=== PATIENT | male | born 1950 | race Caucasian/White ===

== ENCOUNTER 2018-03-20 18:07 | Inpatient (IN) | payer BC, MEDICARE ==
[~2018-03-20] VITALS: Ht 175.3 cm; Wt 82.3 kg
[~2018-03-20 18:07] MED LIST: ASPI81TA11 PO; CALA120T PO; CARV6.25 PO; CLOP75 PO; IMDU30TA PO; LISI-360 PO; NEXI40CA PO; SYNT112T PO; ZOCO20TA PO
[2018-03-20] MEDS ORDERED: IOHEXOL 350 MG/ML 10 ML VIAL (for RAD DIAG) IVCONTRAST ONE (18:08)
[2018-03-20 18:09] VITALS: BP 196/88; PULSE 76; RESP 18; TEMP 98.2; O2SAT 99
[2018-03-20] MEDS ORDERED: SIMV20TA PO (18:26)
[2018-03-20] MEDS ORDERED: CARV12.52 PO (18:26)
[2018-03-20] MEDS ORDERED: DILT120C50 PO (18:26)
[2018-03-20] MEDS ORDERED: ASPI81CH6 CHEW (18:26)
[2018-03-20] MEDS ORDERED: SYNT112T PO (18:26)
[2018-03-20] MEDS ORDERED: NEXI40CA PO (18:26)
[2018-03-20] MEDS ORDERED: LISI-515 PO (18:26)
[2018-03-20] MEDS ORDERED: JANT4TAB PO (18:26)
[2018-03-20] MEDS ORDERED: SODIUM CHLOR 0.9% 1000 ML INJ 1,000 ML IV SCH (18:29)
[2018-03-20] MEDS ORDERED: MORPHINE SULFATE 4 MG/ML INJ IV PUSH ONE (18:30)
[2018-03-20] MEDS ORDERED: ONDANSETRON HCL 4 MG/2 ML VIAL IVP ONE (18:30)
[2018-03-20] MEDS ORDERED: SODIUM CHLORIDE 0.9% FLUSH 10 ML FLUSH IV FLUSH PRN ×2 (18:30→22:00)
--- NOTE | 2018-03-20 18:41 | PD ---
HPI Chief Complaint: Abdominal Pain Time Seen by Provider: 18:15 Travel History International Travel<30 days: No Contact w/Intl Traveler<30days: No Traveled to known affect area: No History of Present Illness HPI 68-year-old male with PMH of HTN, diverticulitis, CAD S/P CABG, hypothyroid, vocal cord CA presents the ED for evaluation of intermittent left upper quadrant abdominal pain 6 days. Patient describes this pain as stabbing, radiating to the back. No alleviating factors reported. Exacerbated by touch in the left upper quadrant. He endorses accompanying loose stools with intermittent pencil thin stools. Denies melena, hematochezia, BRBPR. He endorses mild nausea and anorexia. He endorses palpitations when the pain is maximal. He denies CP, shortness of breath, diaphoresis, vomiting. No treatment attempted at home. Followed by Dr. Bull [facility] Past Medical History Blood Disorders: No Cancer: No Cardiac Catheterization: Yes Cardiovascular Problems: Yes (4 stents placed, aortic stenosis) Diabetes: No Endocrine: Yes Gastrointestinal Disorders: Yes Genitourinary: No Hepatitis: No Hiatal Hernia: No Hypertension: Yes Immune Disorder: No Musculoskeletal: No Neurologic: No Psychiatric: No Reproductive: No Respiratory: No Thyroid Disease: Yes Past Surgical History Abdominal Surgery: No Cardiac Surgery: Yes (STENTS) Coronary Artery Bypass Graft: Yes Endocrine Surgery: Yes (RADIATION FOR THYROID) Eye Surgery: Yes Joint Replacement: No Pacemaker: No Thoracic Surgery: No Other Surgery: Yes Social History Alcohol Use: Yes (wine with dinner) Tobacco Use: No Substance Use: No Allergies-Medications (Allergen,Severity, Reaction): Coded Allergies: azithromycin (Unverified Allergy, Severe, Itching, 07/09/17) penicillin G (Unverified Allergy, Severe, RASH/ITCHING, 07/09/17) Uncoded Allergies: Z-CLOTILDE (Allergy, Severe, HEART PALPITATIONS; GENERAL MALAISE, 08/17/14) PCN= TACHYCARDIA,SWEATING (Allergy, Unknown, 08/03/03) Reported Meds & Prescriptions Reported Meds & Active Scripts Active Reported Simvastatin 20 Mg Tab 20 Mg PO DAILY Diltiazem CD 24 HR 120 Mg Caper 120 Mg PO DAILY Lisinopril 20 Mg Tab 20 Mg PO BID Jantoven (Warfarin) 4 Mg Tab 4 Mg PO DAILY Carvedilol 12.5 Mg Tab 12.5 Mg PO BID Aspirin Low Dose (Aspirin) 81 Mg Chew 81 Mg CHEW DAILY Nexium (Esomeprazole DR) 40 Mg Capdr 40 Mg PO DAILY Synthroid (Levothyroxine Sodium) 112 Mcg Tab 112 Mcg PO DAILY Review of Systems Except as stated in HPI: all other systems reviewed are Neg Physical Exam Narrative GENERAL: Well-nourished, well-developed white male in no acute distress. SKIN: Focused skin assessment warm/dry. Well-healed sternotomy scar without signs of infection. HEAD: Normocephalic. EYES: No scleral icterus. No injection or drainage. NECK: Supple, trachea midline. No JVD or lymphadenopathy. CARDIOVASCULAR: Regular rate and rhythm without murmurs, gallops, or rubs. RESPIRATORY: Breath sounds clear and equal bilaterally. No accessory muscle use. GASTROINTESTINAL: Abdomen soft, nondistended. Tender to deep palpation in the left upper quadrant. Active bowel sounds. No palpable masses. No hepatosplenomegaly. MUSCULOSKELETAL: No cyanosis, or edema. BACK: Nontender without obvious deformity. No CVA tenderness. Data Data Last Documented VS Vital Signs Date Time Temp Pulse Resp B/P (MAP) Pulse Ox O2 Delivery O2 Flow Rate FiO2 03/20/18 19:16 16 03/20/18 19:15 104 143/81 (101) 98 Room Air 03/20/18 18:09 98.2 Orders Orders Complete Blood Count With Diff (03/20/18 18:29) Comprehensive Metabolic Panel (03/20/18 18:29) Lipase (03/20/18 18:29) Lactic Acid (03/20/18 18:29) Prothrombin Time / Inr (Pt) (03/20/18 18:29) Act Partial Throm Time (Ptt) (03/20/18 18:29) Urinalysis - C+S If Indicated (03/20/18 18:29) Ct Abd/Pel W Iv Contrast(Rout) (03/20/18 18:29) Iv Access Insert/Monitor (03/20/18 18:29) Ecg Monitoring (03/20/18 18:29) Oximetry (03/20/18 18:29) Morphine Inj (Morphine Inj) (03/20/18 18:30) Ondansetron Inj (Zofran Inj) (03/20/18 18:30) Sodium Chlor 0.9% 1000 Ml Inj (Ns 1000 M (03/20/18 18:29) Sodium Chloride 0.9% Flush (Ns Flush) (03/20/18 18:30) Electrocardiogram (03/20/18 18:29) Troponin I (03/20/18 18:29) Creatine Kinase (Cpk) (03/20/18 18:29) Aspirin Chew (Aspirin Chew) (03/20/18 19:45) Nitroglycerin 2% Oint (Nitroglycerin 2% (03/20/18 19:45) Iohexol 350 Inj (Omnipaque 350 Inj) (03/20/18 18:08) Carvedilol (Coreg) (03/20/18 20:45) Enoxaparin Inj (Lovenox Inj) (03/20/18 20:45) Admit Order (Ed Use Only) (03/20/18 20:57) Labs Laboratory Tests Test 03/20/18 18:38 White Blood Count 5.1 TH/MM3 Red Blood Count 4.03 MIL/MM3 Hemoglobin 12.4 GM/DL Hematocrit 36.7 % Mean Corpuscular Volume 91.0 FL Mean Corpuscular Hemoglobin 30.9 PG Mean Corpuscular Hemoglobin Concent 33.9 % Red Cell Distribution Width 15.8 % Platelet Count 167 TH/MM3 Mean Platelet Volume 8.4 FL Neutrophils (%) (Auto) 64.5 % Lymphocytes (%) (Auto) 22.9 % Monocytes (%) (Auto) 10.0 % Eosinophils (%) (Auto) 2.0 % Basophils (%) (Auto) 0.6 % Neutrophils # (Auto) 3.3 TH/MM3 Lymphocytes # (Auto) 1.2 TH/MM3 Monocytes # (Auto) 0.5 TH/MM3 Eosinophils # (Auto) 0.1 TH/MM3 Basophils # (Auto) 0.0 TH/MM3 CBC Comment DIFF FINAL Differential Comment Prothrombin Time 15.6 SEC Prothromb Time International Ratio 1.5 RATIO Activated Partial Thromboplast Time 30.5 SEC Urine Color LIGHT-YELLOW Urine Turbidity CLEAR Urine pH 5.5 Urine Specific [place] 1.002 Urine Protein NEG mg/dL Urine Glucose (UA) NEG mg/dL Urine Ketones NEG mg/dL Urine Occult Blood TRACE Urine Nitrite NEG Urine Bilirubin NEG Urine Urobilinogen LESS THAN 2.0 MG/DL Urine Leukocyte Esterase NEG Urine RBC 1 /hpf Urine WBC 2 /hpf Urine Squamous Epithelial Cells <1 /hpf Microscopic Urinalysis Comment CULT NOT INDICATED Blood Urea Nitrogen 14 MG/DL Creatinine 0.89 MG/DL Random Glucose 103 MG/DL Total Protein 7.2 GM/DL Albumin 3.7 GM/DL Calcium Level 8.9 MG/DL Alkaline Phosphatase 50 U/L Aspartate Amino Transf (AST/SGOT) 27 U/L Alanine Aminotransferase (ALT/SGPT) 33 U/L Total Bilirubin 0.4 MG/DL Sodium Level 137 MEQ/L Potassium Level 3.9 MEQ/L Chloride Level 102 MEQ/L Carbon Dioxide Level 26.4 MEQ/L Anion Gap 9 MEQ/L Estimat Glomerular Filtration Rate 85 ML/MIN Lactic Acid Level 0.9 mmol/L Total Creatine Kinase 198 U/L Troponin I 0.07 NG/ML Lipase 150 U/L MDM Medical Decision Making Medical Screen Exam Complete: Yes Emergency Medical Condition: Yes Differential Diagnosis Pancreatitis versus ACS versus GERD versus diverticulitis versus other Narrative Course 68-year-old male with PMH of HTN, diverticulitis, CAD S/P CABG, hypothyroid, vocal cord CA presents the ED for evaluation of intermittent left upper quadrant abdominal pain 6 days. Stabbing, radiating to the back. He endorses accompanying loose stools with intermittent pencil thin stools, mild nausea and anorexia. He endorses palpitations when the pain is maximal. He denies CP, shortness of breath, diaphoresis, vomiting. Followed by Dr. Bull. Patient's afebrile, pulse 76, BP 196/88 on presentation. On exam he has point tenderness to palpation in the left upper quadrant but exam is otherwise reassuring. Patient was ministered 1 L normal saline, 4 mg morphine, 4 mg Zofran. EKG rate 60, sinus rhythm. DE interval 195, QRS 89, QTC 4 7 ms. Normal axis. No acute ST changes. Reviewed by Dr. Hatfield. Troponin 0 0.07. CBC: WBC 5.1. Hemoglobin 12.4. INR: 1.5. CMP: BUN 14, creatinine 0.89. Abdomen pelvis CT: No acute abnormality demonstrated. Mild diverticulosis in the left side of the colon but no perceptive wall diverticulitis or other inflammatory changes. Small benign appearing cyst the liver and atherosclerosis of the abdominal aorta per radiology read. Patient was administered p.o. aspirin, 1 inch nitroglycerin paste was placed on the chest. He was administered his evening dose of carvedilol. I spoke with Dr. Cagle, on-call for Dr. Bull. She recommends holding Coumadin, initiating IM Lovenox, admission to the medicine service. BP 168/78 on recheck. Discussed this plan of care with the patient who is agreeable. I discussed the case with Dr. Jones who agrees to accept the patient to the medicine service. Please see medicine notes for disposition. Marah Hunter Mar 20, 2018 18:41
[2018-03-20 18:52] LABS: BILIRUBIN, URINE NEG (NEG); BLOOD, URINE TRACE (NEG); GLUCOSE,URINE NEG (NEG); KETONE, URINE NEG (NEG); NITRITE,URINE NEG (NEG); PH, URINE 5.5 (5.0-8.5); SQUAMOUS EPITHELIAL CELL URINE <1 /hpf (0-5); URINE COLOR LIGHT-YELLOW (YELLW/STRAW); URINE LEUKOCYTE ESTERASE NEG (NEG)
[2018-03-20 18:56] LABS: AUTOMATED NEUTROPHIL # 3.3 TH/MM3 (1.8-7.7); BASOPHIL % 0.6 % (0.0-2.0); EOSINOPHIL # 0.1 TH/MM3 (0-0.4); HEMATOCRIT 36.7 % (39.0-51.0); HEMOGLOBIN 12.4 GM/DL (13.0-17.0); LYMPH % 22.9 % (9.0-44.0); LYMPHOCYTE # 1.2 TH/MM3 (1.0-4.8); MEAN CORPUSCULAR HEMOGLOBIN 30.9 PG (27.0-34.0); MEAN CORPUSCULAR HGB CONC 33.9 % (32.0-36.0); MEAN PLATELET VOLUME 8.4 FL (7.0-11.0); MONOCYTE # 0.5 TH/MM3 (0-0.9); NEUT % 64.5 % (16.0-70.0); PLATELET COUNT 167 TH/MM3 (150-450); RED BLOOD COUNT 4.03 MIL/MM3 (4.50-5.90); RED CELL DISTRIBUTION WIDTH 15.8 % (11.6-17.2); WHITE BLOOD COUNT 5.1 TH/MM3 (4.0-11.0)
[2018-03-20 19:14] LABS: ALBUMIN 3.7 GM/DL (3.4-5.0); AST (GOT) 27 U/L (15-37); BICARBONATE 26.4 MEQ/L (21.0-32.0); BLOOD UREA NITROGEN 14 MG/DL (7-18); CALCIUM 8.9 MG/DL (8.5-10.1); CHLORIDE 102 MEQ/L (98-107); CREATININE 0.89 MG/DL (0.60-1.30); GLOMERULAR FILTRATION RATE 85 ML/MIN (>89); GLUCOSE,RANDOM 103 MG/DL (74-106); SODIUM (NA) 137 MEQ/L (136-145)
[2018-03-20 19:15] VITALS: BP_SYST 143; BP_SYST 180; BP_DIAS 81; BP_DIAS 83; PULSE 104; PULSE 64; RESP 16; O2SAT 96; O2SAT 98
[2018-03-20 19:16] LABS: ALT (GPT) 33 U/L (12-78)
[2018-03-20 19:18] LABS: INTERNATIONAL NORMALIZED RATIO 1.5 RATIO; PROTHROMBIN TIME - PATIENT 15.6 SEC (9.8-11.6)
[2018-03-20 19:19] LABS: ALKALINE PHOSPHATASE 50 U/L (45-117); TOTAL BILIRUBIN ADULT 0.4 MG/DL (0.2-1.0); TOTAL PROTEIN 7.2 GM/DL (6.4-8.2); TROPONIN I 0.07 NG/ML (0.02-0.05)
[2018-03-20] MEDS ORDERED: ASPIRIN 81 MG CHEW TAB PO ONE (19:45)
[2018-03-20] MEDS ORDERED: NITROGLYCERIN 2% OINT 1 GM PACKET TOP ONE (19:45)
--- NOTE | 2018-03-20 20:30 | RADRPT ---
EXAM DATE/TIME: 03/20/2018 20:07 [place] COMPARISON: No previous studies available for comparison. INDICATIONS : Abdomen pain, diarrhea,left lower abdomen pain IV CONTRAST: 90 cc Omnipaque 350 (iohexol) IV ORAL CONTRAST: No oral contrast ingested. RADIATION DOSE: 7.11 CTDIvol (mGy) MEDICAL HISTORY : Cardiovascular disease. Hypertension. Thyroid disease SURGICAL HISTORY : None. ENCOUNTER: Initial ACUITY: 1 day PAIN SCALE: 4/10 LOCATION: Left Abdomen TECHNIQUE: Volumetric scanning of the abdomen and pelvis was performed. Using automated exposure control and ad justment of the mA and/or kV according to patient size, radiation dose was kept as low as reasonably achievable to obtain optimal diagnostic quality images. DICOM format image data is available electro nically for review and comparison. FINDINGS: LOWER LUNGS: The visualized lower lungs are clear. LIVER: A few scattered cysts up to 15 mm. Homogeneous density otherwise without concerning lesion. There is no dilation of the biliary tree. No calcified gallstones. SPLEEN: Normal size without lesion. PANCREAS: Within normal limits. KIDNEYS: Normal in size and shape. There is no mass, stone or hydronephrosis. ADRENAL GLANDS: Within normal limits. VASCULAR: Atherosclerotic aorta. No aneurysm. BOWEL/MESENTERY: Mild left-sided colon diverticulosis. No perceptible acute inflammatory changes. There is no bowel ob struction. Normal appendix. ABDOMINAL WALL: Within normal limits. RETROPERITONEUM: There is no lymphadenopathy. BLADDER: No wall thickening or mass. REPRODUCTIVE: Within normal limits. INGUINAL: There is no lymphadenopathy or hernia. MUSCULOSKELETAL: 2.9 cm subchondral mixed attenuation lesion of the right iliac bone with a generally benign appearanc e. There is mild osteoarthritis of both sacroiliac joints. Degenerative changes are also seen of the spine. Vacuum phenomena and endplate sclerosis noted of the T11/T12, L4/L5 and L5/S1 discs. There is mild bilateral hip osteoarthritis. CONCLUSION: 1. No acute abnormality demonstrated. There is mild diverticulosis of the left side of the colon but no perceptible diverticulitis or other acute inflammatory changes. 2. Small, benign appearing cysts of the liver and atherosclerosis of the abdominal aorta. Cristhian Mejia MD on March 20, 2018 at 20:23 Board Certified Radiologist. This report was verified electronically.
[2018-03-20] MEDS ORDERED: CARVEDILOL 12.5 MG TAB PO ONE (20:45)
[2018-03-20 21:08] VITALS: BP 168/78; PULSE 66; RESP 16; O2SAT 99
[2018-03-20] MEDS: ENOXAPARIN SODIUM 80 MG/0.8 ML SYRINGE SQ SCH (21:08)
[2018-03-20] MEDS ORDERED: ONDANSETRON HCL 4 MG/2 ML VIAL IVP PRN (22:00)
[2018-03-20] MEDS ORDERED: NALOXONE HCL 0.4 MG/ML AMP IV PUSH PRN (22:00)
[2018-03-20] MEDS ORDERED: ACETAMINOPHEN 325 MG TAB PO PRN (22:00)
--- NOTE | 2018-03-20 22:22 | HHI.HP ---
[facility] Jahaira Mustafa MD Admission Diagnosis elevated troponin Diagnoses: Travel History International Travel<30 Days: No Contact w/Intl Traveler <30 Da: No Traveled to Known Affected Are: No History of Present Illness 68-year-old male with a past medical history significant for coronary artery disease status post stent placement, hypertension and a history of vocal cord cancer presents to the emergency department with left upper quadrant pain. The patient reports the pain is pinpoint in his left upper quadrant and when he presses on it it radiates to his back. The pain began last night. He reports indigestion with crampy abdominal pain since Saturday. 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 Bull. He denies any chest pain or shortness of breath. No fever/chills. Intermittent episodes of diarrhea. No fatigue or weakness. No lateralizing signs/symptoms. Review of Systems Except as stated in HPI: all other systems reviewed are Neg Past Family Social History Past Medical History CAD Hypertension History of vocal cord cancer Past Surgical History Stent placement 4 AVR Reported Medications Reported Meds & Active Scripts Active Reported Simvastatin 20 Mg Tab 20 Mg PO DAILY Diltiazem CD 24 HR 120 Mg Caper 120 Mg PO DAILY Lisinopril 20 Mg Tab 20 Mg PO BID Jantoven (Warfarin) 4 Mg Tab 4 Mg PO DAILY Carvedilol 12.5 Mg Tab 12.5 Mg PO BID Aspirin Low Dose (Aspirin) 81 Mg Chew 81 Mg CHEW DAILY Nexium (Esomeprazole DR) 40 Mg Capdr 40 Mg PO DAILY Synthroid (Levothyroxine Sodium) 112 Mcg Tab 112 Mcg PO DAILY Allergies: Coded Allergies: azithromycin (Unverified Allergy, Severe, Itching, 07/09/17) penicillin G (Unverified Allergy, Severe, RASH/ITCHING, 07/09/17) Uncoded Allergies: Z-CLOTILDE (Allergy, Severe, HEART PALPITATIONS; GENERAL MALAISE, 08/17/14) PCN= TACHYCARDIA,SWEATING (Allergy, Unknown, 08/03/03) Family History Mother with CAD Social History Occasional alcohol. Denies tobacco, illicit drugs. Physical Exam Vital Signs Vital Signs Date Time Temp Pulse Resp B/P (MAP) Pulse Ox O2 Delivery O2 Flow Rate FiO2 03/20/18 21:08 66 16 168/78 (108) 99 Room Air 03/20/18 19:16 16 03/20/18 19:15 104 16 143/81 (101) 98 Room Air 03/20/18 19:15 64 16 180/83 (115) 96 Room Air 03/20/18 18:09 98.2 76 18 196/88 (124) 99 Physical Exam GENERAL: male sitting up in bed SKIN: No rashes, ecchymoses or lesions. Cool and dry. HEAD: Atraumatic. Normocephalic. No temporal or scalp tenderness. EYES: Pupils equal round and reactive. Extraocular motions intact. No scleral icterus. No injection or drainage. ENT: Nose without bleeding, purulent drainage or septal hematoma. Throat without erythema, tonsillar hypertrophy or exudate. Uvula midline. Airway patent. NECK: Trachea midline. No JVD or lymphadenopathy. Supple, nontender, no meningeal signs. CARDIOVASCULAR: Regular rate and rhythm. Click with 2/6 murmur. RESPIRATORY: Clear to auscultation. Breath sounds equal bilaterally. No wheezes , rales, or rhonchi. GASTROINTESTINAL: Abdomen soft, non-tender, nondistended. No hepato-splenomegaly , or palpable masses. No guarding. MUSCULOSKELETAL: Extremities without clubbing, cyanosis, or edema. No joint tenderness, effusion, or edema noted. No calf tenderness. NEUROLOGICAL: Awake and alert. Cranial nerves II through XII intact. Motor and sensory grossly within normal limits. Normal speech. Laboratory Laboratory Tests Test 03/20/18 18:38 White Blood Count 5.1 Red Blood Count 4.03 Hemoglobin 12.4 Hematocrit 36.7 Mean Corpuscular Volume 91.0 Mean Corpuscular Hemoglobin 30.9 Mean Corpuscular Hemoglobin Concent 33.9 Red Cell Distribution Width 15.8 Platelet Count 167 Mean Platelet Volume 8.4 Neutrophils (%) (Auto) 64.5 Lymphocytes (%) (Auto) 22.9 Monocytes (%) (Auto) 10.0 Eosinophils (%) (Auto) 2.0 Basophils (%) (Auto) 0.6 Neutrophils # (Auto) 3.3 Lymphocytes # (Auto) 1.2 Monocytes # (Auto) 0.5 Eosinophils # (Auto) 0.1 Basophils # (Auto) 0.0 CBC Comment DIFF FINAL Differential Comment Prothrombin Time 15.6 Prothromb Time International Ratio 1.5 Activated Partial Thromboplast Time 30.5 Urine Color LIGHT-YELLOW Urine Turbidity CLEAR Urine pH 5.5 Urine Specific [place] 1.002 Urine Protein NEG Urine Glucose (UA) NEG Urine Ketones NEG Urine Occult Blood TRACE Urine Nitrite NEG Urine Bilirubin NEG Urine Urobilinogen LESS THAN 2.0 Urine Leukocyte Esterase NEG Urine RBC 1 Urine WBC 2 Urine Squamous Epithelial Cells <1 Microscopic Urinalysis Comment CULT NOT INDICATED Blood Urea Nitrogen 14 Creatinine 0.89 Random Glucose 103 Total Protein 7.2 Albumin 3.7 Calcium Level 8.9 Alkaline Phosphatase 50 Aspartate Amino Transf (AST/SGOT) 27 Alanine Aminotransferase (ALT/SGPT) 33 Total Bilirubin 0.4 Sodium Level 137 Potassium Level 3.9 Chloride Level 102 Carbon Dioxide Level 26.4 Anion Gap 9 Estimat Glomerular Filtration Rate 85 Lactic Acid Level 0.9 Total Creatine Kinase 198 Troponin I 0.07 Lipase 150 Result Diagram: 03/20/18183703/20/181837 Caprini VTE Risk Assessment Caprini VTE Risk Assessment: Mod/High Risk (score >= 2) Caprini Risk Assessment Model Point Value = 1 Point Value = 2 Point Value = 3 Point Value = 5 Age 41-60 Minor surgery BMI > 25 kg/m2 Swollen legs Varicose veins or History of unexplained or recurrent spontaneous Oral contraceptives or hormone replacement Sepsis (< 1 month) Serious lung disease, including pneumonia (< 1 month) Abnormal pulmonary function Acute myocardial infarction Congestive heart failure (< 1 month) History of inflammatory bowel disease Medical patient at bed rest Age 61-74 Arthroscopic surgery Major open surgery (> 45 min) Laparoscopic surgery (> 45 min) Malignancy Confined to bed (> 72 hours) Immobilizing plaster cast Central venous access Age >= 75 History of VTE Family history of VTE Factor V Leiden Prothrombin [id number] Lupus anticoagulant Anticardiolipin antibodies Elevated serum homocysteine Heparin-induced thrombocytopenia Other congenital or acquired thrombophilia Stroke (< 1 month) Elective arthroplasty Hip, pelvis, or leg fracture Acute spinal cord injury (< 1 month) Prophylaxis Regimen Total Risk Factor Score Risk Level Prophylaxis Regimen 0-1 Low Early ambulation 2 Moderate Order ONE of the following: *Sequential Compression Device (SCD) *Heparin 5000 units SQ BID 3-4 Higher Order ONE of the following medications: *Heparin 5000 units SQ TID *Enoxaparin/Lovenox 40 mg SQ daily (WT < 150 kg, CrCl > 30 mL/min) *Enoxaparin/Lovenox 30 mg SQ daily (WT < 150 kg, CrCl > 10-29 mL/min) *Enoxaparin/Lovenox 30 mg SQ BID (WT < 150 kg, CrCl > 30 mL/min) AND/OR *Sequential Compression Device (SCD) 5 or more Highest Order ONE of the following medications: *Heparin 5000 units SQ TID (Preferred with Epidurals) *Enoxaparin/Lovenox 40 mg SQ daily (WT < 150 kg, CrCl > 30 mL/min) *Enoxaparin/Lovenox 30 mg SQ daily (WT < 150 kg, CrCl > 10-29 mL/min) *Enoxaparin/Lovenox 30 mg SQ BID (WT < 150 kg, CrCl > 30 mL/min) AND *Sequential Compression Device (SCD) Assessment and Plan Assessment and Plan Assessment/plan: 1. Elevated troponin/NSTEMI EKG showed normal sinus rhythm without ST segment elevations or depressions, personally reviewed Initial troponin 0 0.07 ACS rule out pending; serial troponins/EKGs Patient's mining machinery assembler, Dr. Bull consulted, appreciate recommendations Therapeutic Lovenox per cardiology recommendation 2. CAD/hypertension Continue home medications FEN Heart healthy diet per cardiology Electrolytes: monitor and replete prn Lovenox Physician Certification 2 Midnight Certification Type: Admission for Inpatient Services Order for Inpatient Services The services are ordered in accordance with Medicare regulations or non- Medicare payer requirements, as applicable. In the case of services not specified as inpatient-only, they are appropriately provided as inpatient services in accordance with the 2-midnight benchmark. Estimated LOS (days): 2 2 days is the estimated time the patient will need to remain in the hospital, assuming treatment plan goals are met and no additional complications. Post-Hospital Plan: Not yet determined Shanti Jones MD Mar 20, 2018 22:22
[2018-03-20 22:50] VITALS: BP 157/72; PULSE 63; RESP 16; O2SAT 99
[2018-03-20 22:54] VITALS: BP 147/73; PULSE 65; RESP 17; TEMP 97.4; O2SAT 95
[2018-03-20 23:43] VITALS: PULSE 60
[2018-03-21] VITALS (7 sets, daily range): BP systolic 127–178; BP diastolic 70–85; PULSE 60–67; RESP 16–18; TEMP 97.1–97.9; O2SAT 96–99
[2018-03-21 03:31] LABS: TROPONIN I 0.07 NG/ML (0.02-0.05)
[2018-03-21] MEDS: ENOXAPARIN SODIUM 80 MG/0.8 ML SYRINGE SQ SCH (08:40)
[2018-03-21] MEDS: SODIUM CHLORIDE 0.9% FLUSH 10 ML FLUSH IV FLUSH SCH ×2 (08:42→21:32)
[2018-03-21 08:45] LABS: AUTOMATED NEUTROPHIL # 2.3 TH/MM3 (1.8-7.7); BASOPHIL % 0.5 % (0.0-2.0); EOSINOPHIL # 0.1 TH/MM3 (0-0.4); EOSINOPHIL % 2.3 % (0.0-4.0); HEMATOCRIT 34.4 % (39.0-51.0); HEMOGLOBIN 11.8 GM/DL (13.0-17.0); LYMPH % 27.1 % (9.0-44.0); LYMPHOCYTE # 1.1 TH/MM3 (1.0-4.8); MEAN CELL VOLUME 90.1 FL (80.0-100.0); MEAN CORPUSCULAR HGB CONC 34.4 % (32.0-36.0); MEAN PLATELET VOLUME 8.4 FL (7.0-11.0); MONO % 11.6 % (0.0-8.0); MONOCYTE # 0.4 TH/MM3 (0-0.9); NEUT % 58.5 % (16.0-70.0); PLATELET COUNT 141 TH/MM3 (150-450); RED BLOOD COUNT 3.82 MIL/MM3 (4.50-5.90); RED CELL DISTRIBUTION WIDTH 15.8 % (11.6-17.2); WHITE BLOOD COUNT 3.9 TH/MM3 (4.0-11.0)
[2018-03-21 09:09] LABS: BICARBONATE 26.8 MEQ/L (21.0-32.0); CALCIUM 8.9 MG/DL (8.5-10.1); CREATININE 0.77 MG/DL (0.60-1.30)
[2018-03-21 09:13] LABS: TROPONIN I 0.06 NG/ML (0.02-0.05)
--- NOTE | 2018-03-21 13:24 | MB ---
cc: Dominga Cagle MD DATE: 03/21/2018 REFERRING PHYSICIAN: Dr. Mustafa. REASON FOR CONSULTATION: Elevated troponins. HISTORY OF PRESENT ILLNESS: A 68-year-old white male who is a patient of Dr. Bull who was admitted with complaints of left upper quadrant pain and diarrhea for 3 days. Workup included troponins that were found to be mildly positive, but flat. The patient also had an electrocardiogram that showed normal sinus rhythm and no acute ischemic changes. He denies chest pain or shortness of breath. The patient underwent a CT of the abdomen that showed diverticulosis without diverticulitis. He continues to have some left upper quadrant pain, but not as severe as it was on admission. PAST MEDICAL HISTORY: Coronary artery disease, status post stents. He did have a cardiac catheterization in 2016 where the stents were found to be widely open. Also, hypertension, vocal cord cancer, aortic valve replacement with a mechanical valve. SOCIAL HISTORY: Denies smoking, but drinks occasionally. ALLERGIES: AZITHROMYCIN AND PENICILLIN. MEDICATIONS: His home medications include: 1. Simvastatin 20 mg daily. 2. Diltiazem long-acting 120 mg daily. 3. Lisinopril 20 mg twice a day. 4. Warfarin 4 mg daily. 5. Carvedilol 12.5 mg twice a day. 6. Aspirin 81 mg daily. 7. Nexium 40 mg daily. 8. Synthroid 112 mcg daily. REVIEW OF SYSTEMS: As per history of present illness. Rest of the 12-system review is negative. PHYSICAL EXAMINATION: GENERAL: The patient appears in no acute distress. VITAL SIGNS: Blood pressure is 143/70 with a mean of 94 mmHg. Heart rate 67. He is afebrile. HEAD AND NECK: Without JVD or carotid bruits. LUNGS: Clear to auscultation. CARDIOVASCULAR: Normal S1, S2, with a 2/6 systolic murmur. ABDOMEN: Overall, benign with tenderness to palpation of the left upper quadrant, but with no signs of peritoneal irritation. EXTREMITIES: Without edema. LABORATORY DATA: CT of the abdomen showed diverticulosis without diverticulitis. No other acute findings. Electrocardiogram showed normal sinus rhythm. Blood work: White count 3.9, hemoglobin 11.8, platelet count 141. INR yesterday was 1.5. Chemistry with a sodium 140, potassium 3.6, BUN 12, creatinine 0.7, glucose 87. Troponin 0.07 x 2.0 and 0.6 x 1. IMPRESSION: 1. Abdominal pain secondary to diverticulosis with no signs of acute abdomen. 2. Slightly elevated troponins, which likely represent a supply/demand mismatch. There is no evidence of acute coronary syndrome since the patient has no chest pain and no acute ischemic changes. Also, he had a relatively recent left cardiac catheterization with patent stents. 3. Aortic valve replacement with subtherapeutic INR. The patient was recommended to increase Coumadin to 6 mg daily for the next 3 days and check INR this coming Saturday. He will followup with Dr. Bull next week and can be discharged home from a cardiac standpoint. Dominga Cagle MD MIL/DL , 12:48 PM , 01:23 PM
--- NOTE | 2018-03-21 13:33 | HHI.PR ---
Subjective Remarks doing great no chest pain states occasional sensation of epigastric discomfort- some reflux sensation- already on Nexium no nausea or vomiting good BM Objective Vitals Vital Signs Date Time Temp Pulse Resp B/P (MAP) Pulse Ox O2 Delivery O2 Flow Rate FiO2 03/21/18 12:00 97.8 67 18 149/71 (97) 96 03/21/18 08:00 61 03/21/18 08:00 97.7 60 18 158/85 (109) 98 03/21/18 08:00 98 Room Air 03/21/18 04:00 Room Air 03/21/18 04:00 97.1 67 18 143/70 (94) 97 03/21/18 03:42 63 03/21/18 00:00 Room Air 03/20/18 23:43 60 03/20/18 23:16 03/20/18 22:54 97.4 65 17 147/73 (97) 95 03/20/18 22:50 63 16 157/72 (100) 99 Room Air 03/20/18 21:08 66 16 168/78 (108) 99 Room Air 03/20/18 19:16 16 03/20/18 19:15 104 16 143/81 (101) 98 Room Air 03/20/18 19:15 64 16 180/83 (115) 96 Room Air 03/20/18 18:09 98.2 76 18 196/88 (124) 99 I/O 03/20/18 03/20/18 03/20/18 03/21/18 03/21/18 03/21/18 07:00 15:00 23:00 07:00 15:00 23:00 Intake Total 1000 ml 120 ml Balance 1000 ml 120 ml Intake Oral 120 ml IV Total 1000 ml # Voids 1 # Bowel Movements 0 Result Diagram: 03/21/18 0830 03/21/18 0830 Imaging Last Impressions Abdomen/Pelvis CT 03/20/18 182 Signed Impressions: Service Date/Time: February 20:07 - CONCLUSION: 1. No acute abnormality demonstrated. There is mild diverticulosis of the left side of the colon but no perceptible diverticulitis or other acute inflammatory changes. 2. Small, benign appearing cysts of the liver and atherosclerosis of the abdominal aorta. Cristhian Mejia MD Objective Remarks awake and alert, oriented x 3 anicteric lungs- clear regular rhythm abdomen-soft, good bowel sounds, nontender extremities no edema neuro exam- unremarkable A/P Assessment and Plan 68 years old male Atypical pain Elevated troponin/NSTEMI- chest pain free History of HTN/CAD EKG showed normal sinus rhythm without ST segment elevations or depressions, personally reviewed Initial troponin 0 0.07 cleared by cariology for DC isntructed to take Coumadin 6 mg po x 3 days - patient states he has 4 mg and can break it in 1/2 then Back to 4 mg daily Restart home meds- Lisinorpil - up to 10 mg daily, coreg- up to 12.5 mg po bid continue cardizem CD 120 mg daily OP ff up with PCP- Dr. Mustafa- for GI work up- abdominal exam benign, lipase normal has an upcoming colonosocpy and EGD this next 2 weeks- [facility] group continue PPI Advise to take Maalox prn Hypothyroidism. continue synthroid FEN Heart healthy diet per cardiology Electrolytes: monitor and replete prn HOme today INR- Mon/Susan Burch MD Mar 21, 2018 13:33
--- NOTE | 2018-03-21 13:50 | EKG ---
Date Performed: 03/21/2018 Time Performed: 01:55:16 PTAGE: 68 years EKG: Sinus rhythm Normal ECG PREVIOUS TRACING 03/20/18 Since the previous tracing, no significant change noted DOCTOR: Harley Tyler Interpretating Date/Time 03/21/2018 13:46:33
--- NOTE | 2018-03-21 13:50 | EKG ---
Date Performed: 03/20/2018 Time Performed: 18:43:38 PTAGE: 68 years EKG: Sinus rhythm POSSIBLE LEFT ATRIAL ENLARGEMENT BORDERLINE ECG PREVIOUS TRACING 09/05/16 Since the previous tracing, no significant change noted DOCTOR: Harley Tyler Interpretating Date/Time 03/21/2018 13:46:19
--- NOTE | 2018-03-21 13:50 | EKG ---
Date Performed: 03/21/2018 Time Performed: 07:04:46 PTAGE: 68 years EKG: Sinus rhythm POSSIBLE LEFT ATRIAL ENLARGEMENT BORDERLINE ECG PREVIOUS TRACING : 03/21/2018 Since the previous tracing, no significant change noted DOCTOR: Harley Tyler Interpretating Date/Time 03/21/2018 13:46:46
[2018-03-21] MEDS ORDERED: WARFARIN SOD 2 MG TAB PO ONE (16:45)
[2018-03-21] MEDS: DILTIAZEM-CD 120 MG CAP ER PO SCH (17:09)
[2018-03-21] MEDS: WARFARIN SOD 4 MG TAB PO SCH (17:09)
[2018-03-21] MEDS ORDERED: LISINOPRIL 20 MG TAB PO SCH ×2 (18:15→21:00)
[2018-03-21] MEDS ORDERED: CARVEDILOL 12.5 MG TAB PO SCH (21:00)
[2018-03-21] MEDS ORDERED: CARVEDILOL 12.5 MG TAB PO ONE (23:30)
[2018-03-22] VITALS: BP 129/63; PULSE 60; PULSE 62; RESP 18; TEMP 98.1; O2SAT 98
[2018-03-22 04:00] VITALS: BP 134/74; PULSE 66; PULSE 67; RESP 20; TEMP 97.5; O2SAT 98
[2018-03-22] MEDS ORDERED: LEVOTHYROXINE SODIUM 112 MCG TAB PO SCH (06:00)
[2018-03-22 06:17] LABS: INTERNATIONAL NORMALIZED RATIO 1.7 RATIO; PROTHROMBIN TIME - PATIENT 17.4 SEC (9.8-11.6)
[2018-03-22 08:00] VITALS: BP 159/77; PULSE 57; PULSE 63; RESP 17; TEMP 97.7; O2SAT 97
[2018-03-22] MEDS: WARFARIN SOD 4 MG TAB PO SCH (08:13)
[2018-03-22] MEDS: SODIUM CHLORIDE 0.9% FLUSH 10 ML FLUSH IV FLUSH SCH (08:14)
--- NOTE | 2018-03-22 08:40 | HHI.PR ---
Subjective Remarks up on chair ambulating no complains of chest pain, shortness of breath or abdominal BPs improved with initiation of home meds Objective Vitals Vital Signs Date Time Temp Pulse Resp B/P (MAP) Pulse Ox O2 Delivery O2 Flow Rate FiO2 03/22/18 04:00 97.5 66 20 134/74 (94) 98 03/22/18 04:00 Room Air 03/22/18 04:00 67 03/22/18 00:00 Room Air 03/22/18 00:00 60 03/22/18 00:00 98.1 62 18 129/63 (85) 98 03/21/18 20:20 Room Air 03/21/18 20:00 97.9 65 16 178/81 (113) 99 03/21/18 20:00 64 03/21/18 18:01 96 Room Air 03/21/18 18:01 64 03/21/18 14:48 64 03/21/18 14:48 96 Room Air 03/21/18 12:00 97.8 67 18 149/71 (97) 96 I/O 03/21/18 03/21/18 03/21/18 03/22/18 03/22/18 03/22/18 07:00 15:00 23:00 07:00 15:00 23:00 Intake Total 120 ml 480 ml 480 ml Balance 120 ml 480 ml 480 ml Intake Oral 120 ml 480 ml 480 ml # Voids 1 3 1 # Bowel Movements 0 0 Result Diagram: 03/21/18 0830 03/21/18 0830 Imaging Last Impressions Abdomen/Pelvis CT 03/20/18 1829 Signed Impressions: Service Date/Time: February 20:07 - CONCLUSION: 1. No acute abnormality demonstrated. There is mild diverticulosis of the left side of the colon but no perceptible diverticulitis or other acute inflammatory changes. 2. Small, benign appearing cysts of the liver and atherosclerosis of the abdominal aorta. Cristhian Mejia MD Objective Remarks awake and alert, oriented x 3 anicteric lungs- clear regular rhythm abdomen-soft, good bowel sounds, nontender extremities no edema neuro exam- unremarkable A/P Assessment and Plan 68 years old male Atypical pain Elevated troponin/NSTEMI- chest pain free History of HTN/CAD EKG showed normal sinus rhythm without ST segment elevations or depressions, personally reviewed Initial troponin 0 0.07 isntructed to take Coumadin 6 mg po x 2 days - patient states he has 4 mg and can break it in 1/2 then Back to 4 mg daily continuet home meds- Lisinorpil - up to 10 mg daily, coreg- 25 mg po bid continue cardizem CD 120 mg daily OP ff up with PCP- Dr. Mustafa- for GI work up- abdominal exam benign, lipase normal has an upcoming colonosocpy and EGD this next 2 weeks- [facility] group continue PPI Advise to take Maalox prn Hypothyroidism. continue synthroid Heart healthy diet Activity as tolerated- weightbearing, no strenuous activity HOme today INR- Mon/Tu through [facility] Meds as above- patient states he ahs all meds at home Susan Swan MD Mar 22, 2018 08:40
[2018-03-22] MEDS ORDERED: CARV12.5 PO (08:42)
[2018-03-22] MEDS ORDERED: WARFARIN SOD 2 MG TAB PO ONE (08:45)
[2018-03-22] MEDS ORDERED: ASPIRIN 81 MG CHEW TAB CHEW SCH (09:00)
[2018-03-22] MEDS ORDERED: CARVEDILOL 12.5 MG TAB PO SCH (09:00)
[2018-03-22] MEDS ORDERED: PRAVASTATIN SOD 40 MG TAB PO SCH (09:00)
[2018-03-22] MEDS ORDERED: PANTOPRAZOLE SOD 40 MG DELAYED RELEASE TAB PO SCH (09:00)
[2018-03-22] MEDS: DILTIAZEM-CD 120 MG CAP ER PO SCH (09:02)
== END 2018-03-22 09:56 | disposition home or self-care (01) | DRG 948 ==
LOC: NEPE 18:07 → NEDA 21:01 → N04B 22:54
PROVIDERS: ADMIT Internal Medicine; ATTEND Internal Medicine
DX: R79.89 Other specified abnormal findings of blood chemistry (principal); K76.89 Other specified diseases of liver; I10 Essential (primary) hypertension; E03.9 Hypothyroidism, unspecified; I70.0 Atherosclerosis of aorta; K21.9 Gastro-esophageal reflux disease without esophagitis; I25.10 Atherosclerotic heart disease of native coronary artery without angina pectoris; K57.30 Diverticulosis of large intestine without perforation or abscess without bleeding; Z95.1 Presence of aortocoronary bypass graft; Z85.21 Personal history of malignant neoplasm of larynx; Z95.2 Presence of prosthetic heart valve; Z79.01 Long term (current) use of anticoagulants; Z95.5 Presence of coronary angioplasty implant and graft; Z88.0 Allergy status to penicillin; Z88.1 Allergy status to other antibiotic agents; Z79.82 Long term (current) use of aspirin
CPT/HCPCS: 74177; 80048; 80053; 81001; 82550; 83605; 83690; 84484; 85025; 85610; 85730; 93005; 96361; 96374; 96375; J1650; J2270; J2405; J7030; Q9967